=== PATIENT | female | born 1945 | race Two or more races ===

== ENCOUNTER 2019-12-05 17:06 | Observation (INO) | payer MEDICARE, MEDICAID ==
[2019-12-05] MEDS ORDERED: Acetaminophen 325 MG Tab PO PRN (17:11)
[2019-12-05] MEDS ORDERED: Morphine 2 MG/ML SYRINGE IVPUSH PRN (17:11)
[2019-12-05] MEDS ORDERED: oxyCODONE 5 MG Tab PO PRN (17:11)
[2019-12-05] MEDS ORDERED: Sodium Chloride 0.9% 10 ML Syringe FLUSH PRN (17:11)
[2019-12-05] MEDS ORDERED: Ondansetron 4 MG Tab.DIS PO PRN (17:11)
[2019-12-05] MEDS ORDERED: Ondansetron 4 MG/2 ML SDV IVPUSH PRN (17:11)
[2019-12-05] MEDS: Sodium Chloride 0.9% 1,000 ML IV SCH (18:19)
[2019-12-05] MEDS ORDERED: Baclofen 10 MG Tab PO PRN (19:03)
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
[2019-12-05] MEDS ORDERED: cloNIDine 0.1 MG Tab PO PRN (19:14)
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
[2019-12-05] MEDS: Ibuprofen 400 MG Tab PO PRN (21:42)
[2019-12-05] MEDS: Heparin Sodium 5,000 Units/ML Vial SUBCUT SCH (21:45)
[2019-12-06] MEDS: Sodium Chloride 0.9% 1,000 ML IV SCH (02:52)
[2019-12-06] MEDS: Ibuprofen 400 MG Tab PO PRN (04:09)
[2019-12-06] MEDS: Heparin Sodium 5,000 Units/ML Vial SUBCUT SCH (05:50)
[2019-12-06] MEDS ORDERED: Aspirin 325 MG Tab PO SCH (09:00)
[2019-12-06] MEDS ORDERED: Omeprazole 20 MG Cap.CR PO SCH (09:00)
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
== END 2019-12-06 11:30 | disposition home or self-care (01) ==
LOC: DL.MS 17:06 → UNDOADMOB 17:06 → DL.MS 17:11
PROVIDERS: ADMIT Internal Medicine; ATTEND Internal Medicine
DX: K43.9 Ventral hernia without obstruction or gangrene (principal); K44.9 Diaphragmatic hernia without obstruction or gangrene; E66.9 Obesity, unspecified; I10 Essential (primary) hypertension; J45.909 Unspecified asthma, uncomplicated; G89.29 Other chronic pain; M25.519 Pain in unspecified shoulder; Z88.1 Allergy status to other antibiotic agents; Z88.0 Allergy status to penicillin; Z88.2 Allergy status to sulfonamides; Z91.013 Allergy to seafood; Z79.899 Other long term (current) drug therapy; Z85.3 Personal history of malignant neoplasm of breast; Z90.10 Acquired absence of unspecified breast and nipple; Z79.82 Long term (current) use of aspirin; Z85.038 Personal history of other malignant neoplasm of large intestine; Z68.41 Body mass index [BMI] 40.0-44.9, adult
CPT/HCPCS: 36415; 74176; 80048; 80076; 83605; 83690; 85025; 96360; 96361; A9270; G0378; J7030

== ENCOUNTER 2024-04-23 15:21 | Inpatient (IN) | payer MEDICARE, MEDICAID ==
[2024-04-23] MEDS ORDERED: Sodium Chloride 0.9% 10 ML Syringe FLUSH PRN (15:34)
[2024-04-23 16:08] LABS: BASOPHILS PERCENT AUTO 0.7 % (0.0-1.0); EOSINOPHILS PERCENT AUTO 3.6 % (1.0-3.0); HEMATOCRIT 43.7 % (37.0-47.0); HEMOGLOBIN 14.2 g/dL (12.0-16.0); LYMPHOCYTES PERCENT AUTO 30.5 % (20.5-50.1); MEAN CORPUSCULAR HEMOGLOBIN 28.5 pg (27.0-34.0); MEAN CORPUSCULAR HGB CONC 32.5 g/dL (33.0-35.0); MEAN CORPUSCULAR VOLUME 87.8 fL (80-100); MONOCYTES PERCENT AUTO 8.9 % (2-8); NEUTROPHILS PERCENT AUTO 56.3 % (42.2-75.2); PLATELET COUNT,PLT 189 10^3/uL (150-450); RED BLOOD CELL COUNT 4.98 10^6/uL (4.2-5.4); WHITE BLOOD CELL COUNT,WBC 5.5 10^3/uL (5.0-10.0)
[2024-04-23] MEDS: Albuterol/Ipratropium 3.0-0.5 MG/3 ML Neb Soln NEB ONE (16:16)
[2024-04-23] MEDS: Dexamethasone 4 MG/ML SDV IVPUSH ONE ×2 (16:16→20:49)
[2024-04-23 16:28] LABS: PROTHROMBIN TIME 10.2 SEC (9.0-12.0); PTT,PARTIAL THROMBOPLSTIN TIME 26.8 SEC (22.0-34.0)
[2024-04-23 16:37] LABS: LACTIC ACID 1.1 mmol/L (0.4-2.0)
[2024-04-23 16:45] LABS: B-TYPE NATRIURETIC PEPTIDE,BNP 82 pg/ml (0-100)
[2024-04-23 16:55] LABS: A/G RATIO 1.1; ALANINE AMINOTRANSFERASE,ALT 19 U/L (14-59); ALBUMIN 3.9 g/dL (3.4-5.0); ALKALINE PHOSPHATASE 89 U/L (46-116); ANION GAP 14.9 mEq/L (7-13); ASPARTATE AMNIOTRANSFERASE,AST 16 U/L (15-37); BILIRUBIN TOTAL 0.4 mg/dL (0.2-1.0); BLOOD UREA NITROGEN,BUN 18 mg/dL (7-18); C-REACTIVE PROTEIN 0.52 ng/dL (<=0.50); CALCIUM 9.4 mg/dL (8.5-10.1); CARBON DIOXIDE,CO2 29 mmol/L (21-32); CHLORIDE,CL 102 mmol/L (98-107); GLUCOSE RANDOM 109 mg/dL (70-99); MAGNESIUM 1.9 mg/dL (1.8-2.4); POTASSIUM,K 3.9 mmol/L (3.5-5.1); PROTEIN TOTAL,TP 7.4 g/dL (6.4-8.2); SODIUM,NA 142 mmol/L (136-145); TSH ULTRASENSITIVE 2.05 uIU/mL (0.36-3.74)
[2024-04-23 16:57] LABS: APPEARANCE,URINE CLEAR (CLEAR); BILIRUBIN,URINE NEGATIVE (NEGATIVE); COLOR,URINE YELLOW (YELLOW); GLUCOSE,URINE NEGATIVE (NEGATIVE); KETONES,URINE NEGATIVE (NEGATIVE); LEUKOCYTE ESTERASE,URINE TRACE (NEGATIVE); NITRITE,URINE NEGATIVE (NEGATIVE); OCCULT BLOOD,URINE TRACE-INTACT (NEGATIVE); PROTEIN,URINE NEGATIVE (NEGATIVE); UROBILINOGEN,URINE 0.2 mg/dL (0.2-1.0)
[2024-04-23 16:57] LABS: ESTIMATED GFR 66 mL/min (>=60)
[2024-04-23 17:09] LABS: BACTERIA,URINE FEW /HPF (0-FEW/HPF); EPITHELIAL CELLS,URINE FEW /HPF (NOT SEEN); MUCUS,URINE FEW /LPF (NOT SEEN); WBC,URINE 0-5 /HPF (0-5/HPF)
[2024-04-23] MEDS ORDERED: Metoprolol Tartrate 5 MG/5 ML SDV IVPUSH PRN (19:13)
[2024-04-23] MEDS ORDERED: HYDROmorphone 0.5 MG/0.5 ML Syringe IVPUSH PRN (19:14)
[2024-04-23] MEDS ORDERED: Ondansetron 4 MG/2 ML SDV IVPUSH PRN (19:14)
[2024-04-23] MEDS ORDERED: Polyethylene Glycol 3350 Powder 17 GM Packet PO PRN (19:14)
[2024-04-23] MEDS ORDERED: Naloxone 2 MG/2 ML Syringe IVPUSH PRN (19:14)
[2024-04-23] MEDS ORDERED: Sennosides/Docusate Sodium 50-8.6 MG Tab PO PRN (19:14)
[2024-04-23] MEDS ORDERED: Acetaminophen/HYDROcodone 325-5 MG Tab PO PRN (19:14)
[2024-04-23] MEDS: Famotidine 20 MG/2 ML SDV IVPUSH ONE (20:49)
[2024-04-23] MEDS: guaiFENesin 600 MG Tab.ER PO SCH (20:49)
[2024-04-23] MEDS: Loratadine 10 MG Tab PO STA (20:49)
[2024-04-23] MEDS: Montelukast 10 MG Tab PO STA (20:50)
[2024-04-23] MEDS: Melatonin 3 MG Tab PO PRN (20:50)
[2024-04-23] MEDS ORDERED: hydrALAZINE 20 MG/ML SDV IVPUSH PRN (21:13)
[2024-04-23] MEDS: Acetaminophen/HYDROcodone 325-5 MG Tab PO PRN (22:10)
[2024-04-23] MEDS: Baclofen 10 MG Tab PO ONE (22:10)
[2024-04-23] MEDS: Cefepime 2 GM Vial IVPUSH ONE (22:10)
[2024-04-23] MEDS: VANCOmycin 1.5 GM/300 ML 300 ML IV ONE (22:11)
[2024-04-24] MEDS: cloNIDine 0.1 MG Tab PO ONE (02:08)
[2024-04-24] MEDS: Omeprazole 20 MG Cap.CR PO SCH (05:17)
[2024-04-24 06:31] LABS: HEMATOCRIT 43.7 % (37.0-47.0); HEMOGLOBIN 14.3 g/dL (12.0-16.0); LYMPHOCYTES PERCENT AUTO 16.4 % (20.5-50.1); MEAN CORPUSCULAR HEMOGLOBIN 28.4 pg (27.0-34.0); MEAN CORPUSCULAR HGB CONC 32.7 g/dL (33.0-35.0); MEAN CORPUSCULAR VOLUME 86.9 fL (80-100); NEUTROPHILS PERCENT AUTO 82.6 % (42.2-75.2); PLATELET COUNT,PLT 206 10^3/uL (150-450); RED BLOOD CELL COUNT 5.03 10^6/uL (4.2-5.4); WHITE BLOOD CELL COUNT,WBC 5.9 10^3/uL (5.0-10.0)
[2024-04-24 06:58] LABS: ALBUMIN 3.7 g/dL (3.4-5.0); ANION GAP 15.8 mEq/L (7-13); BILIRUBIN TOTAL 0.5 mg/dL (0.2-1.0); C-REACTIVE PROTEIN 0.52 ng/dL (<=0.50); CALCIUM 9.1 mg/dL (8.5-10.1); CREATININE 0.85 mg/dL (0.55-1.02); EST CRCL DRUG DOSING (CG) 47.86 mL/min; MAGNESIUM 1.9 mg/dL (1.8-2.4); POTASSIUM,K 3.8 mmol/L (3.5-5.1); PROTEIN TOTAL,TP 7.4 g/dL (6.4-8.2)
[2024-04-24] MEDS: Loratadine 10 MG Tab PO SCH (09:30)
[2024-04-24] MEDS: Dexamethasone 4 MG/ML SDV IVPUSH SCH (09:32)
[2024-04-24] MEDS: Cefepime 2 GM Vial IVPUSH SCH (09:32)
[2024-04-24] MEDS: Magnesium Hydroxide 400 MG/5 ML Susp 30 ML Cup PO PRN (10:10)
[2024-04-24] MEDS: VANCOmycin 1.5 GM/300 ML 1.5 GM in Premix Bag 1 BAG IV SCH (17:26)
[2024-04-24] MEDS: Montelukast 10 MG Tab PO SCH (21:10)
[2024-04-24] MEDS: Albuterol/Ipratropium 3.0-0.5 MG/3 ML Neb Soln NEB PRN (21:10)
[2024-04-24] MEDS: Acetaminophen 325 MG Tab PO PRN (21:15)
[2024-04-25 06:56] LABS: HEMATOCRIT 40.7 % (37.0-47.0); HEMOGLOBIN 13.1 g/dL (12.0-16.0); LYMPHOCYTES PERCENT AUTO 8.9 % (20.5-50.1); MEAN CORPUSCULAR HEMOGLOBIN 28.3 pg (27.0-34.0); MEAN CORPUSCULAR HGB CONC 32.2 g/dL (33.0-35.0); MEAN CORPUSCULAR VOLUME 87.9 fL (80-100); NEUTROPHILS PERCENT AUTO 87.1 % (42.2-75.2); PLATELET COUNT,PLT 207 10^3/uL (150-450); RED BLOOD CELL COUNT 4.63 10^6/uL (4.2-5.4); WHITE BLOOD CELL COUNT,WBC 11.9 10^3/uL (5.0-10.0)
[2024-04-25 07:22] LABS: A/G RATIO 1.1; ALANINE AMINOTRANSFERASE,ALT 21 U/L (14-59); ALBUMIN 3.6 g/dL (3.4-5.0); ALKALINE PHOSPHATASE 77 U/L (46-116); ASPARTATE AMNIOTRANSFERASE,AST 18 U/L (15-37); BILIRUBIN TOTAL 0.4 mg/dL (0.2-1.0); BLOOD UREA NITROGEN,BUN 22 mg/dL (7-18); BUN/CREATININE RATIO 25.6 (No establ ref range); CALCIUM 8.8 mg/dL (8.5-10.1); CARBON DIOXIDE,CO2 26 mmol/L (21-32); CHLORIDE,CL 102 mmol/L (98-107); CREATININE 0.86 mg/dL (0.55-1.02); EST CRCL DRUG DOSING (CG) 47.31 mL/min; GLUCOSE RANDOM 158 mg/dL (70-99); MAGNESIUM 2.1 mg/dL (1.8-2.4); PROTEIN TOTAL,TP 6.9 g/dL (6.4-8.2); SODIUM,NA 139 mmol/L (136-145)
[2024-04-25 07:27] LABS: C-REACTIVE PROTEIN < 0.50 ng/dL (<=0.50); ESTIMATED GFR 70 mL/min (>=60)
[2024-04-25] MEDS: hydrALAZINE 25 MG Tab PO SCH (07:39)
== END 2024-04-25 08:44 | disposition home or self-care (01) | DRG 178 ==
LOC: DL.ED 15:21 → DL.MS 18:10 → DL.ED 18:20
PROVIDERS: ADMIT Internal Medicine; ATTEND Internal Medicine
DX: J90 Pleural effusion, not elsewhere classified (principal); J18.9 Pneumonia, unspecified organism; J69.0 Pneumonitis due to inhalation of food and vomit; J98.11 Atelectasis; E66.9 Obesity, unspecified; K44.9 Diaphragmatic hernia without obstruction or gangrene; H54.7 Unspecified visual loss; I10 Essential (primary) hypertension; Z88.0 Allergy status to penicillin; J45.909 Unspecified asthma, uncomplicated; K59.09 Other constipation; E66.811 Obesity, class 1; F15.90 Other stimulant use, unspecified, uncomplicated; Z68.41 Body mass index [BMI] 40.0-44.9, adult; M19.90 Unspecified osteoarthritis, unspecified site; R73.9 Hyperglycemia, unspecified; G47.00 Insomnia, unspecified; Z85.3 Personal history of malignant neoplasm of breast; Z85.038 Personal history of other malignant neoplasm of large intestine; Z87.440 Personal history of urinary (tract) infections; Z85.118 Personal history of other malignant neoplasm of bronchus and lung; Z88.2 Allergy status to sulfonamides; Z88.8 Allergy status to other drugs, medicaments and biological substances; Z88.1 Allergy status to other antibiotic agents; Z91.041 Radiographic dye allergy status; Z91.018 Allergy to other foods; Z91.013 Allergy to seafood; Z79.51 Long term (current) use of inhaled steroids; Z79.82 Long term (current) use of aspirin; Z79.1 Long term (current) use of non-steroidal anti-inflammatories (NSAID); Z79.2 Long term (current) use of antibiotics; Z79.899 Other long term (current) drug therapy; Z90.710 Acquired absence of both cervix and uterus; Z98.890 Other specified postprocedural states; Z90.10 Acquired absence of unspecified breast and nipple; Z91.199 Patient's noncompliance with other medical treatment and regimen due to unspecified reason
CPT/HCPCS: 36415; 71045; 80053; 81001; 83605; 83735; 83880; 84145; 84443; 84484; 85025; 85379; 85610; 85730; 86140; 87040 ×2; 87086; 87428; 93005; 93010; 96374; 99284; 99285; J1100; 70450; 71250; 80202; 99222; 99232; 99238; A9270-GY; J0692; J3372; J7620-GY